=== PATIENT | male | born 2000 | race Caucasian/White ===

== ENCOUNTER 2023-10-13 16:00 | Emergency (ER) | payer OTHER, SELFPAY ==
[2023-10-13 16:09] VITALS: BP 152/85
[2023-10-13] MEDS: FLEXERIL 10 MG PO (17:26)
[2023-10-13] MEDS: TYLENOL 1000 MG PO (17:26)
[2023-10-13] MEDS: LIDOCAINE 4% PATCH 1 PATCH TOPICAL (17:26)
[2023-10-13] MEDS: MOTRIN 400 MG PO (17:27)
--- NOTE | 2023-10-13 17:28 | ED.GENMED ---
History of Present Illness
General
Chief Complaint: Musculo-Skeletal Complaint
Time Seen by Provider: 10/13/23 17:04
Travel History
Have you had any contact with someone who has COVID-19?: No
Do you have any symptoms of coronavirus? Fever > 100 degrees, chills, cough, shortness of breath, sore throat, loss of taste or smell, muscle aches, or headache?: No
History of Present Illness
History of Present Illness:
23-year-old male history of allergies presenting with right lateral posterior neck pain after sneezing today. Patient reports decreased range of motion secondary to pain. Patient denies numbness, weakness, tingling, visual changes, or headache.
Patient states that he took ibuprofen 200 mg prior to arrival with minimal relief. Patient denies falls or trauma.
Past History
Social History
Tobacco: Non-smoker
Drug: None
Phy Exam
Physical Exam
Physical Exam:
General: Alert, no acute distress
Head: NCAT. holding head with side bending to left
Eyes: clear conjunctiva. PERRLA, EOMI
Neck: supple. tenderness to palpation right paraspinal muscles with increased tonicity. decreased right side bending secondary to pain. full passive range of motion. no midline cervical tenderness to palpation
Cardiac: regular rate and rhythm, no murmur
Lungs: clear to auscultation bilaterally. No wheezes, rales, or rhonchi. Speaking full unlabored sentences. No respiratory distress.
MSK: no lower extremity edema bilaterally. No deformity
Skin: warm, dry
Neuro: Alert and oriented x3. no focal deficits. Cranial nerves II through XII grossly intact no focal deficits. 5/5 strength bilateral upper and lower extremities. Sensation intact throughout.
Course
Orders/Labs/Results
Orders:
Orders
10/13/23 17:15
Cyclobenzaprine HCl [Flexeril] 10 mg PO NOW STA
Ibuprofen [Motrin] 400 mg PO NOW STA
10/13/23 17:18
Acetaminophen [Tylenol] 1,000 mg PO NOW STA
10/13/23 17:30
Lidocaine [Lidocaine 4% Patch] 1 patch TOPICAL DAILY
Vital Signs
Initial and Last Documented VS:
Initial Vital Signs
Temp Pulse Resp BP Pulse Ox
98.7 F 66 18 152/85 96
10/13/23 16:09 10/13/23 16:09 10/13/23 16:09 10/13/23 16:09 10/13/23 16:09
Last Documented Vital Signs
Temp Pulse Resp BP Pulse Ox
98.7 F 66 18 152/85 96
10/13/23 16:09 10/13/23 16:09 10/13/23 16:09 10/13/23 16:09 10/13/23 16:09
MDM/Problems Addressed
MDM/Problems Addressed:
Patient presents to the Emergency Department with ___right neck pain
Number and Complexity of Problems Addressed at the Encounter
� Chronic conditions affecting care:
� Acute Exacerbation and/or Progression of Chronic Illness:
� Differential Diagnosis includes: Torticollis, muscular strain.
Amount and/or Complexity of Data to be Reviewed and Analyzed
� I performed an independent evaluation of and my interpretation is:
EKG:
CT:
Xrays:
Laboratory Studies:
Other:
� Review of other/old records reveals:
� Clinical information was obtained by an independent historian:
� Prescriptions/Medications Considered but not given:
� Further testing considered but not performed:
Risk of Complications and/or Morbidity or Mortality of Patient Management
� Social Determinants of health affecting care:
� Discussion with other providers (PCP, Hospitalists, Consultants, etc):
� Escalation of care including admission/observation vs risk of discharge considered: 23-year-old male history of allergies presenting with right neck pain after sneezing today. Patient reports taking ibuprofen 200 mg prior to arrival with minimal
relief. Patient denies numbness, weakness, tingling, or headache. Patient holding head side bent to the left. Neurologically intact. Suspect muscular strain, will treat with ibuprofen, Tylenol, Flexeril, lidocaine patch. On reevaluation,
patient reports improvement in pain. Continues to be neurologically intact. Advised ice, gentle range of motion, Flexeril, tylenol/motrin prn, PCP follow up
*Critical Care Note
Total Time (30-74mins, 75-104mins- exclusive of procedures): Not Applicable
ED Attending Note
-
Portions of this chart may have been created with voice recognition software.� Occasional wrong word or��sound alike� substitutions may have occurred due to the inherent limitations of voice recognition software.
Discharge Plan
Departure
Patient Disposition: Home (Routine Discharge)
Date of Disposition: 10/13/23
Time of Disposition: 18:19
Patient with high blood pressure during this ER visit?: Yes
Discharge Problem:
Acute torticollis
Instructions: Torticollis (DC)
Prescriptions:
New
cyclobenzaprine 5 mg tablet
5 mg PO Q8H Qty: 20 0RF
lidocaine 5 % adhesive patch,medicated
2 patch topical DAILY Qty: 30 0RF
Rx Instructions:
change every 12 hours
No Action
amoxicillin 875 MG tablet
875 mg PO BID Qty: 14 0RF
antipyrine-benzocaine 1 DROP drops
4 drp otic (ear) QIDPRN PRN (Reason: ear pain) Qty: 1 0RF
Referrals:
Felix Nolasco DO [Family Provider] -
Activity Restrictions/Additional Instructions:
Take tylenol 975mg every 6 hours and/or ibuprofen 800mg every 8 hours with food as needed for pain
Take flexeril every 8 hours as needed for neck pain/spasm
Use lidocaine patch as needed for neck pain. Change every 12 hours
Follow up with primary care doctor in 1-2 days
Return to the emergency department for focal weakness, visual changes or new/worsening symptoms
Interventions
Interventions:
*Risk Screen - Suicide Last Done: 10/13/23 17:35
*General Assessment Last Done: 10/13/23 17:35
*Neglect/Abuse Screening Last Done: 10/13/23 17:35
*ED COVID-19 Vaccine History Last Done: 10/13/23 16:09
ED-Musculoskeletal Assessment Last Done: 10/13/23 17:35
Discharge Date and Time
Print Language: LATVIAN
== END 2023-10-13 18:34 | disposition home or self-care (01) ==
LOC: EMR 16:00
PROVIDERS: EMERGENCY PHYSICIAN Emergency Medicine; FAMILY PHYSICIAN Family Medicine
DX: M43.6 Torticollis (principal); R03.0 Elevated blood-pressure reading, without diagnosis of hypertension
CPT/HCPCS: 99283

== ENCOUNTER → 2024-08-15 11:04 | Outpatient (REF) | payer OTHER, SELFPAY | LOC: RAD 11:04 | PROVIDERS: ATTENDING PHYSICIAN Family Medicine | DX: M61.472 Other calcification of muscle, left ankle and foot (principal); M79.645 Pain in left finger(s) | CPT/HCPCS: 73140; 73610 ==